=== PATIENT | male | born 1965 | race Caucasian/White ===

== ENCOUNTER 2018-02-18 21:17 | Emergency (ER) | payer BC ==
[2018-02-18 22:38] VITALS: BP 197/98; PULSE 120; O2SAT 97
[2018-02-18] MEDS ORDERED: Adacel Vial IM ONE ×2 (22:50→23:29)
[2018-02-18] MEDS ORDERED: XYLOCAINE 1% HCL 20 ML MDV IJ ONE (22:50)
[2018-02-18] MEDS ORDERED: XYLOCAINE 1% HCL 20 ML MDV ONE (22:52)
--- NOTE | 2018-02-18 22:54 | ERPHSYRPT ---
- History of Present Illness Time Seen by Provider: 02/18/18 22:40 Source: patient Exam Limitations: no limitations Patient Subjective Stated Complaint: fish hook to right thumb Triage Nursing Assessment: pt has fish hook to right thumb. no bleeding noted Physician History: Pt was fishing, accidentally a fishhook got caught in his right thumb. He denies other injury. Occurred: just prior to arrival Method of Injury: other (fishing) Quality: constant Severity of Pain-Max: mild Severity of Pain-Current: mild Extremities Pain Location: thumb: right (fishhook in end phalanx) Modifying Factors: Improves With: nothing Associated Symptoms: none Allergies/Adverse Reactions: No Known Drug Allergies Allergy (Unverified 02/18/18 22:38) Home Medications: No Reportable Medications [No Reported Medications] 02/18/18 [History] Hx Tetanus, Diphtheria Vaccination/Date Given: No Hx Influenza Vaccination/Date Given: No Hx Pneumococcal Vaccination/Date Given: No Immunizations Up to Date: Yes - Review of Systems Constitutional: No Symptoms Musculoskeletal: Other (foreign body ( fishhook ) in right thumb) All Other Systems: Reviewed and Negative - Past Medical History Pertinent Past Medical History: No - Past Surgical History Past Surgical History: Yes - Social History Smoking Status: Never smoker Exposure to second hand smoke: No Drug Use: none Patient Lives Alone: No - Nursing Vital Signs Nursing Vital Signs: Initial Vital Signs Temperature 98.1 F 02/18/18 22:33 Pulse Rate 120 H 02/18/18 22:33 Respiratory Rate 18 02/18/18 22:33 Blood Pressure 197/98 02/18/18 22:33 O2 Sat by Pulse Oximetry 97 02/18/18 22:33 Pain Scale Pain Intensity 0 - Physical Exam General Appearance: no apparent distress Eyes, Ears, Nose, Throat Exam: normal ENT inspection Neck Exam: normal inspection Cardiovascular/Respiratory Exam: chest non-tender, normal breath sounds, regular rate/rhythm, heart sounds normal Abdominal Exam: non-tender, soft Back Exam: normal inspection Hand Exam: normal inspection (right thumb: fish hook in the end phalanx on the radial side, no bleeding, good capillary refills.) Neuro/Tendon Exam: normal sensation, normal motor functions Mental Status Exam: alert, oriented x 3 Skin Exam: normal color, warm, dry SpO2 Interpretation: normal SpO2: 97 Oxygen Delivery: Room Air Procedures - Laceration/Wound Repair Right Finger Wound Location: Right Wound Length (cm): 0.5 Wound's Depth, Shape: superficial Wound Explored: clean Irrigated: Yes Hibiclens Prep: No Anesthesia: local, 1% Lidocaine Volume Anesthetic (ccs): 2 Number of Sutures: 0 Sterile Dressing Applied?: Yes Splint Applied?: No Sling Applied?: No Progress: 02/18/18 23:22 With a small incision made ( #11 scalpel) the hook was removed easily, patient tolerated well. Bleeding was controlled with pressure. - Course Nursing assessment & vital signs reviewed: Yes Ordered Tests: Medication Summary Discontinued Medications Generic Name Dose Route Start Last Admin Trade Name Freq PRN Reason Stop Dose Admin Diphtheria/Tetanus/Acell Pertussis 0.5 ml 02/18/18 22:50 Adacel Vial IM 02/18/18 22:51 .ONCE ONE Lidocaine HCl 5 ml 02/18/18 22:50 Xylocaine 1% Hcl 20 Ml Mdv IJ 02/18/18 22:51 STAT ONE Lidocaine HCl Confirm 02/18/18 22:52 Xylocaine 1% Hcl 20 Ml Mdv Administered 02/18/18 22:53 Dose 5 ml .ROUTE .[facility] - Progress Progress: improved Progress Note: 02/18/18 23:23 Fish hook removed, pateint has been stable, discharged advising to change steril ;e dressing daily, return if severe pain, redness, discharge or swelling. - Departure Time of Disposition: 23:24 Departure Disposition: Home Clinical Impression: Foreign body (FB) in soft tissue Condition: Stable Critical Care Time: No Instructions: Removal of Foreign Body in Skin Additional Instructions: Change sterile dressing daily, return if severe pain, swelling, redness, or discharge!
== END 2018-02-18 23:46 | disposition home or self-care (01) ==
LOC: ED 21:17
PROC: 0HCFXZZ Extirpation of Matter from Right Hand Skin, External Approach (ICD-10-PCS; principal; 2018-02-18)
DX: M79.5 Residual foreign body in soft tissue (principal); W45.8XXA Other foreign body or object entering through skin, initial encounter; Y93.89 Activity, other specified; Y92.9 Unspecified place or not applicable
CPT/HCPCS: 10120; 90471; 90715; 96372; 99283